=== PATIENT | female | born 1930 | race Two or more races ===

== ENCOUNTER 2017-04-23 13:24 | Outpatient (CLI) | payer OTHER | END 2017-04-23 13:26 | disposition home or self-care (01) | LOC: SONOGRAMA 13:24 → NUCLEAR 14:00 | DX: C73 Malignant neoplasm of thyroid gland (principal) ==

== ENCOUNTER → 2017-04-23 | Outpatient (CLI) | payer OTHER | END | disposition home or self-care (01) | LOC: NUCLEAR 10:58 | DX: M81.0 Age-related osteoporosis without current pathological fracture (principal) ==

== ENCOUNTER 2017-07-11 13:12 | Outpatient (CLI) | payer OTHER | END 2017-07-11 13:19 | disposition home or self-care (01) | LOC: RAD 13:12 | DX: M54.5 Low back pain (principal) ==

== ENCOUNTER → 2018-06-03 | Outpatient (CLI) | payer OTHER | END | disposition home or self-care (01) | LOC: NUCLEAR 09:00 | DX: R60.1 Generalized edema (principal); I73.9 Peripheral vascular disease, unspecified ==

== ENCOUNTER → 2018-06-11 | Outpatient (CLI) | payer OTHER | END | disposition home or self-care (01) | LOC: NUCLEAR 05-30 11:00 | DX: R60.1 Generalized edema (principal) ==

== ENCOUNTER 2018-09-20 10:46 | Outpatient (CLI) | payer OTHER | END 2018-09-20 12:35 | disposition home or self-care (01) | LOC: RAD 10:46 | DX: M79.671 Pain in right foot (principal) ==

== ENCOUNTER 2019-03-14 10:57 | Outpatient (CLI) | payer OTHER | END 2019-03-14 10:59 | disposition home or self-care (01) | LOC: SONOGRAMA 10:57 | DX: E04.2 Nontoxic multinodular goiter (principal); M79.671 Pain in right foot ==